=== PATIENT | male | born 1985 | race American Indian/Alaskan Native ===

== ENCOUNTER 2019-06-02 00:52 | Emergency (ER) | payer OTHER ==
[2019-06-02] MEDS ORDERED: NACL 0.9% 1000 ML 1,000 ML IV ONE (04:09)
[2019-06-02] MEDS ORDERED: ZOFRAN IV ONE (04:09)
[2019-06-02] MEDS ORDERED: MORPHINE IV ONE (04:09)
[2019-06-02] MEDS ORDERED: PEPCID IV ONE (04:10)
--- NOTE | 2019-06-02 06:06 | Emergency Department Report ---
<CHRIS OROCZO - Last Filed: 06/02/19 07:06> ED Abdominal Pain HPI - General Chief Complaint: Abdominal Pain Stated Complaint: ABD PAIN Time Seen by Provider: 06/02/19 04:00 Source: patient, EMS Mode of arrival: Ambulatory Limitations: No Limitations - History of Present Illness Initial Comments: Patient is a 33-year-old -[place] male with a history of chronic gastric ulcers presents to the ED with, in no acute onset persistent severe diffuse abdominal pain with persistent intermittent nausea and vomiting for the last 2 days. Patient states that he has not been able to eat anything because of severe abdominal pain and nausea and vomiting. Patient denies diarrhea, fever, chills, chest pain, shortness of breath, sore throat, dizziness, headache, dysuria, urinary frequency and urgency, testicular pain, cough, back pain, hematuria or hematemesis and hematochezia. MD Complaint: abdominal pain, other (nausea and vomiting) -: Sudden, days(s) (2) Location: diffuse Migration to: no migration Severity: severe Severity scale (0 -10): 8 Quality: cramping, aching, sharp Consistency: constant Improves With: nothing Worsens With: nothing Associated Symptoms: denies other symptoms, nausea, vomiting, anorexia. denies: diarrhea, fever, chills, constipation, dysuria, hematemesis, hematochezia, melena, syncope - Related Data Previous Rx's Medication Instructions Recorded Last Taken Type Acetaminophen/Codeine [Tylenol 1 tab PO Q6H PRN #12 tab 06/02/19 Unknown Rx /Codeine # 3 tab] Ondansetron [Zofran Odt] 4 mg PO Q8HR PRN #20 tab.rapdis 06/02/19 Unknown Rx Sulfamethoxazole/Trimethoprim 1 each PO BID #14 tablet 06/02/19 Unknown Rx [Bactrim DS TAB] Allergies Allergy/AdvReac Type Severity Reaction Status Date / Time No Known Allergies Allergy Unverified 06/02/19 01:10 ED Review of Systems Constitutional: malaise, weakness. denies: chills, fever Eyes: denies: eye pain, eye discharge, vision change ENT: denies: ear pain, throat pain Respiratory: denies: cough, shortness of breath, wheezing Cardiovascular: denies: chest pain, palpitations Endocrine: no symptoms reported Gastrointestinal: abdominal pain, nausea, vomiting. denies: diarrhea, c onstipation, hematemesis, melena, hematochezia Genitourinary: denies: urgency, dysuria Musculoskeletal: denies: back pain, joint swelling, arthralgia Skin: denies: rash, lesions Neurological: denies: headache, weakness, paresthesias Psychiatric: denies: anxiety, depression Hematological/Lymphatic: denies: easy bleeding, easy bruising ED Past Medical Hx - Past Medical History Previous Medical History?: Yes Additional medical history: Gastric ulcers - Surgical History Past Surgical History?: No - Social History Smoking Status: Current Every Day Smoker Substance Use Type: Alcohol, Marijuana - Medications Home Medications: Home Medications Medication Instructions Recorded Confirmed Last Taken Type Acetaminophen/Codeine [Tylenol 1 tab PO Q6H PRN #12 tab 06/02/19 Unknown Rx /Codeine # 3 tab] Ondansetron [Zofran Odt] 4 mg PO Q8HR PRN #20 tab.rapdis 06/02/19 Unknown Rx Sulfamethoxazole/Trimethoprim 1 each PO BID #14 tablet 06/02/19 Unknown Rx [Bactrim DS TAB] ED Physical Exam - General Limitations: No Limitations General appearance: alert, in no apparent distress - Head Head exam: Present: atraumatic, normocephalic, normal inspection - Eye Eye exam: Present: normal appearance, PERRL, EOMI. Absent: scleral icterus, conjunctival injection, nystagmus Pupils: Present: normal accommodation - ENT ENT exam: Present: normal exam, normal orophraynx, mucous membranes moist, TM's normal bilaterally, normal external ear exam - Neck Neck exam: Present: normal inspection, full ROM - Respiratory Respiratory exam: Present: normal lung sounds bilaterally. Absent: respiratory distress, wheezes, rales, rhonchi, chest wall tenderness, accessory muscle use, decreased breath sounds, prolonged expiratory - Cardiovascular Cardiovascular Exam: Present: regular rate, normal rhythm, normal heart sounds. Absent: systolic murmur, diastolic murmur, rubs, gallop - GI/Abdominal GI/Abdominal exam: Present: soft, tenderness (diffusely tender abdomen, with guarding but no rebound), guarding, normal bowel sounds, hyperactive bowel sounds. Absent: rebound, hypoactive bowel sounds, organomegaly, bruit, pulsatile mass, hernia - Rectal Rectal exam: Present: deferred - Extremities Exam Extremities exam: Present: normal inspection, full ROM, normal capillary refill - Back Exam Back exam: Present: normal inspection, full ROM. Absent: tenderness, CVA tenderness (L), muscle spasm, paraspinal tenderness, vertebral tenderness - Neurological Exam Neurological exam: Present: alert, oriented X3, CN II-XII intact, normal gait, reflexes normal - Psychiatric Psychiatric exam: Present: normal affect, normal mood - Skin Skin exam: Present: warm, dry, intact, normal color. Absent: rash ED Course - Reevaluation(s) Reevaluation #1: 06/02/19 06:08 Patient is alert and oriented 3 and is not in any distress but pain, with normal vital signs. Labs were drawn, and patient treated for pain and nausea a nd vomiting, and also given antacids, as well as normal saline 1 L IV bolus. Abdomen pelvis CT scan with contrast was also ordered. Reevaluation #2: 06/02/19 07:06 Patient Transferred to Mr. Krzysztof Owen [employer] at shift change ED Medical Decision Making - Lab Data Result diagrams: 06/02/19 06:29 - Differential Diagnosis Abdominal pain, gastritis, gastroenteritis, appendicitis, pancreatitis ED Disposition Clinical Impression: Nausea and vomiting in adult, Kidney stone Abdominal pain Qualifiers: Abdominal location: generalized Qualified Code(s): R10.84 - Generalized abdominal pain UTI (urinary tract infection) Qualifiers: Urinary tract infection type: acute cystitis Hematuria presence: without hematuria Qualified Code(s): N30.00 - Acute cystitis without hematuria Disposition: TO HOME OR SELFCARE Condition: Stable Instructions: Acute Nausea and Vomiting (ED), Acute Abdominal Pain (ED) Additional Instructions: Follow-up with a primary care doctor in 3-5 days or if symptoms worsen and continue return to emergency room as soon as possible. Prescriptions: Sulfamethoxazole/Trimethoprim [Bactrim DS TAB] 1 each PO BID #14 tablet Acetaminophen/Codeine [Tylenol /Codeine # 3 tab] 1 tab PO Q6H PRN #12 tab PRN Reason: Pain , Severe (7-10) Ondansetron [Zofran Odt] 4 mg PO Q8HR PRN #20 tab.rapdis PRN Reason: Nausea Referrals: BEAN GALEANO MD [Primary Care Provider] - 3-5 Days PRIMARY CAREMD [Referring] - 3-5 Days BRITNEY BOYD MD [Staff Physician] - 3-5 Days [facility] [Outside] - 3-5 Days [facility] [Outside] - 3-5 Days Forms: Work/School Release Form(ED) <KRZYSZTOF OWEN - Last Filed: 06/02/19 10:26> ED Review of Systems ROS: Stated complaint: ABD PAIN Other details as noted in HPI ED Course Vital Signs 06/02/19 06/02/19 01:12 07:20 Temperature 99.4 F 98.6 F Pulse Rate 74 63 Respiratory 20 16 Rate Blood Pressure 158/114 Blood Pressure 133/72 [Right] O2 Sat by Pulse 100 99 Oximetry ED Medical Decision Making - Lab Data Result diagrams: 06/02/19 06:29 06/02/19 06:29 - Medical Decision Making This is a 33-year-old female that presents with abdominal pain with n/v. The patient was originally seen by PAT Poe. Patient was signed out to me for a pending CT scan. Labs obtained. UA obtained. CT of abdomen obtained and dictated by the radiologist. Patient is notified of the report with no questions noted by the patient. Vital signs are stable prior to discharge. Patient received medical treatment in the ED which patient stated symptoms has resovled and subsided. Was instructed note to operate any machinery due to possible drowsiness and stated someone will drive the patient home. A by mouth challenge has been obtained and patient tolerated well with no nausea vomiting. Patient was notified of strict precatuions of appendictis symptoms and to return to the ED if symptoms occurs as soon as possible. Patient was also instructed to Follow-up with a primary care doctor in 3-5 days or if symptoms worsen and continue return to emergency room as soon as possible. At time of discharge, the patient does not seem toxic or ill in appearance. No acute signs of distress noted. Patient agrees to discharge treatment plan of care. No further questions noted by the patient. Critical care attestation.: If time is entered above; I have spent that time in minutes in the direct care of this critically ill patient, excluding procedure time. ED Disposition Is pt being admited?: No Does the pt Need Aspirin: No
[2019-06-02 06:55] LABS: Basophils % (Auto) 0.2 % (0.0-1.8); Hematocrit 38.9 % (35.5-45.6); Hemoglobin 13.5 gm/dl (11.8-15.2); Lymphocytes # (Auto) 1.5 K/mm3 (1.2-5.4); Lymphocytes % (Auto) 15.7 % (13.4-35.0); Mean Corpuscular HGB Conc 35 % (32-34); Mean Corpuscular Volume 85 fl (84-94); Monocytes # (Auto) 0.7 K/mm3 (0.0-0.8); Monocytes % (Auto) 7.7 % (0.0-7.3); Platelet Count 169 K/mm3 (140-440); Red Blood Count 4.57 M/mm3 (3.65-5.03); Red Cell Distribution Width 13.3 % (13.2-15.2)
[2019-06-02 07:08] LABS: BUN/Creatinine Ratio 20; Blood Urea Nitrogen 14 mg/dL (9-20)
[2019-06-02 07:09] LABS: Alanine Aminotransferase 14 units/L (7-56); Albumin 4.1 g/dL (3.9-5); Hemolysis Index 4
[2019-06-02] MEDS ORDERED: K-DUR PO ONE (09:09)
--- NOTE | 2019-06-02 10:17 | Cat Scan Report ---
CT abdomen pelvis w con INDICATION / CLINICAL INFORMATION: Abdominal pain since Monday. History of stomach ulcers. TECHNIQUE: The patient received 100 cc Omnipaque [address] scans at this location are performed using CT dose reduction for ALARA by means of automated exposure control. COMPARISON: None available. FINDINGS: ABDOMEN: There is minimal bilateral nephrolithiasis, greater on the right. The largest calculus only measures approximately 2 mm. There is no evidence of hydronephrosis. The liver, spleen, gallbladder, bile ducts, pancreas, adrenal glands and bowel are normal in appearance. There is no evidence of mikey l obstruction, wall thickening or free air. No adenopathy is seen. The lung bases are clear. PELVIS: The distal ureters, urinary bladder and prostate gland are normal. A normal appendix is prese nt and there is no evidence of diverticulitis. No abnormal mass or fluid collection is seen. I do not identify a hernia. No osseous abnormality is seen. IMPRESSION: 1. Minimal bilateral nonobstructive nephrolithiasis. 2. No acute intra-abdominal disease is identified. Signer Name: Donovan Antoine MD Signed: 06/02/2019 10:13 AM Workstation Name: [id number]
[2019-06-02 10:23] LABS: Bilirubin,Urine NEG (Negative); Blood,Urine NEG (Negative); Color,Urine Yellow (Yellow); Mucus,Urine 3+ /HPF; Urobilinogen,Urine < 2.0 mg/dL (<2.0)
[2019-06-02 10:24] LABS: RBC,Urine < 1.0 /HPF (0.0-6.0)
[2019-06-02 10:37] VITALS: BP 117/62
== END 2019-06-02 10:39 | disposition home or self-care (01) ==
LOC: ED 00:52
DX: N39.0 Urinary tract infection, site not specified (principal); N20.0 Calculus of kidney; F17.200 Nicotine dependence, unspecified, uncomplicated; F12.10 Cannabis abuse, uncomplicated
CPT/HCPCS: 36415; 74177; 80053; 81001; 83690; 85025; 87086; 96361; 96374; 96375; 99284; J2270; J2405; J7030; Q9967